=== PATIENT | male | born 1965 | race Hispanic/Latino ===

== ENCOUNTER 2018-01-18 14:10 | Inpatient (IN) | payer OTHER ==
[2018-01-18 14:41] LABS: Absolute Lymphocytes (CBC) 1.2 K/uL (0.7-4.9); Absolute Monocytes 0.5 K/uL (0.1-1.3); Absolute Neutrophil 3.6 K/uL (1.8-8.0); Basophils % 0.4 % (0-1.3); Eosinophils % 0.4 % (0-4.4); Hematocrit 40.2 % (39.6-49.0); Lymphocytes % 22.8 % (15.3-44.8); MCH 34.8 pg (27.0-35.0); MCV 100.4 fL (80-100); MPV 10.4 fL (7.6-11.3); Monocytes % 9.8 % (3.3-12.3)
[2018-01-18] MEDS ORDERED: NA CHLORIDE 0.9% 1,000 ML ONE (14:46)
[2018-01-18] MEDS ORDERED: FENTANYL CITR 100 MCG/2 ML ONE (14:46)
[2018-01-18 15:17] LABS: Albumin 2.5 g/dL (3.4-5.0); Bilirubin Direct 0.5 mg/dL (0-0.2); Bilirubin Total 1.4 mg/dL (0.2-1.0); Potassium 4.1 mmol/L (3.5-5.1); Protein, Total 7.5 g/dL (6.4-8.2)
[2018-01-18 15:36] LABS: Platelet Estimate DECR; Urine White Blood Cell Casts OK
[2018-01-18 15:37] LABS: Blood Morphology Comment NOT SEEN (NOT SEEN)
[2018-01-18] MEDS ORDERED: PROMETHAZINE 25 MG/ML VIAL ONE (15:42)
[2018-01-18] MEDS ORDERED: MORPHINE 4 MG/ML SYR ONE (16:08)
--- NOTE | 2018-01-18 16:20 | ER ---
Nurse's Notes [facility] Name: Osmar Tinoco Jr Age: 52 yrs Sex: Male : 1965 Arrival Date: 01/18/2018 Time: 14:13 Bed 19 Private MD: Diagnosis: Umbilical hernia with obstruction, without gangrene Presentation: 01/18 14:15 Presenting complaint: Patient states: hx of umbilical hernia, today was having sever iw pain to hernia, doctor could not reduce the hernia in clinic. Pt in sever pain 9/10, pale, diaphoretic. Transition of care: patient was not received from another setting of care. Onset of symptoms was January 18, 2018. Risk Assessment: Do you want to hurt yourself or someone else? Patient reports no desire to harm self or others. Initial Sepsis Screen: Does the patient meet any 2 criteria? No. Patient's initial sepsis screen is negative. Does the patient have a suspected source of infection? No. Patient's initial sepsis screen is negative. Care prior to arrival: None. 14:15 Method Of Arrival: Law Enforcement: [place] [employer] iw 14:15 Acuity: HALEY 2 iw Historical: - Allergies: 14:23 PENICILLINS; iw - PMHx: 14:23 Hepatitis; Hypertension; iw - PSHx: 14:23 None; iw - Immunization history:: Adult Immunizations. - Ebola Screening: : Patient negative for fever greater than or equal to 101.5 degrees Fahrenheit, and additional compatible Ebola Virus Disease symptoms Patient denies exposure to infectious person Patient denies travel to an Ebola-affected area in the 21 days before illness onset No symptoms or risks identified at this time. - Social history:: Smoking status: unknown. Screenin:50 Abuse screen: Denies threats or abuse. Denies injuries from another. Nutritional iw screening: No deficits noted. Tuberculosis screening: No symptoms or risk factors identified. Fall Risk IV access (20 points). Assessment: 14:49 General: Appears uncomfortable, ill, Behavior is calm, cooperative. Pain: Complains of iw pain in umbilical area Pain currently is 9 out of 10 on a pain scale. Neuro: Level of Consciousness is awake, alert, obeys commands, Oriented to person, place, time, situation, Moves all extremities. Full function. Cardiovascular: Patient's skin is warm and dry. Respiratory: Respiratory effort is even, unlabored, Respiratory pattern is regular, symmetrical. GI: Abdomen is round obese, Bowel sounds present in right upper quadrant, left upper quadrant, right lower quadrant and left lower quadrant Abd is soft X 4 quads Reports upper abdominal pain, nausea. Derm: Skin is pink, warm \T\ dry. Musculoskeletal: Range of motion: intact in all extremities. 15:46 Reassessment: Patient appears in no apparent distress at this time. Patient and/or em family updated on plan of care and expected duration. Pain level reassessed. c/o of nausea and pain, rates 8/10, Shaunna GENERAL INTERNIST notified, new medication order received. 16:17 Reassessment: Patient appears in no apparent distress at this time. Patient and/or em family updated on plan of care and expected duration. Pain level reassessed. Patient is alert, oriented x 3, equal unlabored respirations, skin warm/dry/pink. Dr. Alonso at bedside, attempted to manually reduce hernia, unsuccessful attempt, pt consented for surgery. 17:00 Reassessment: Patient appears in no apparent distress at this time. Patient and/or em family updated on plan of care and expected duration. Pain level reassessed. Patient is alert, oriented x 3, equal unlabored respirations, skin warm/dry/pink. reports pain 5/10 Patient states feeling better. Vital Signs: 14:17 BP 109 / 45; Pulse 61; Resp 20; Pulse Ox 96% on R/A; Weight 99.79 kg; Height 5 ft. 9 iw in. (175.26 cm); Pain 9/10; 14:48 BP 103 / 56; Pulse 60; Resp 16; Pulse Ox 100% on R/A; iw 15:30 BP 141 / 70; Pulse 74; Resp 18; Temp 98.0(O); Pulse Ox 98% on R/A; em 16:30 BP 114 / 53; Pulse 68; Resp 16; Pulse Ox 99% on R/A; Pain 7/10; em 14:17 Body Mass Index 32.49 (99.79 kg, 175.26 cm) iw ED Course: 14:13 Patient arrived in ED. em 14:17 Triage completed. iw 14:18 Shaunna Viveros FNP-C [facility]. snw 14:18 Levy Jung MD is Attending Physician. snw 14:23 Arm band placed on. iw 14:24 Nguyễn Zaragoza LVN is Primary Nurse. em 14:25 Initial lab(s) drawn, by me, sent to lab. Inserted saline lock: 20 gauge in left Blood iw collected. 14:51 Patient has correct armband on for positive identification. Bed in low position. Pulse iw ox on. NIBP on. 15:27 CT completed. Patient tolerated procedure well. Patient moved back from CT. bq 15:29 CT Abd/Pelvis - W/Contrast In Process Unspecified. EDMS 16:19 Chance Alonso MD is Hospitalizing Provider. snw 17:23 No provider procedures requiring assistance completed. Patient admitted, IV remains in em place. Administered Medications: 14:48 Drug: NS 0.9% 1000 ml Route: IV; Rate: 1000 ml; Site: left antecubital; iw 17:21 Follow up: IV Status: Completed infusion; IV Intake: 1000ml em 14:48 Drug: fentaNYL (PF) 25 mcg Route: IVP; Site: left antecubital; iw 15:48 Follow up: Response: No adverse reaction; Pain is unchanged, physician notified em 15:48 Drug: fentaNYL (PF) 25 mcg Route: IVP; Site: left antecubital; em 17:21 Follow up: Response: No adverse reaction em 15:50 Drug: Phenergan 6.25 mg Route: IVP; Site: left antecubital; iw 17:21 Follow up: Response: No adverse reaction; Nausea is decreased em 16:10 Drug: morphine 2 mg Route: IVP; Site: left antecubital; hb 17:22 Follow up: Response: No adverse reaction; Pain is decreased em 17:00 Drug: vancoMYCIN 1 grams Route: IVPB; Infused Over: 2 hrs; Site: left antecubital; em 17:22 Follow up: Response: No adverse reaction; IV Status: Infusion continued upon admission em Intake: 17:21 IV: 1000ml; Total: 1000ml. em Outcome: 16:19 Decision to Hospitalize by Provider. snw 17:25 Admitted to OR accompanied by nurse, via stretcher, with chart. em 17:25 Condition: good 17:25 Instructed on the need for admit, Demonstrated understanding of instructions. 17:27 Patient left the ED. em Signatures: Dispatcher [employer] EDMS Shaunna Viveros FNP-C EXTERN-Csnw Roseline Washington Edgar, LAPEL STITCHER LAPEL STITCHER em Jordyn Contreras, RN RN iw Disha Tolentino RN RN hb Corrections: (The following items were deleted from the chart) 17:27 15:30 BP 141 / 70; Pulse 74bpm; Resp 18bpm; Pulse Ox 98% RA; em em
--- NOTE | 2018-01-18 16:21 | EDPHYS ---
Physician Documentation [facility] Name: Osmar Tinoco Jr Age: 52 yrs Sex: Male : 1965 Arrival Date: 01/18/2018 Time: 14:13 Bed 19 Private MD: ED Physician Levy Jung HPI: 01/18 14:27 This 52 yrs old Male presents to ER via Law Enforcement with complaints of Abdominal snw Pain, Umbilical Hernia. 14:27 The patient presents with abdominal pain in the periumbilical area. Onset: The snw symptoms/episode began/occurred suddenly, last night. The symptoms do not radiate. Associated signs and symptoms: none. The symptoms are described as constant. Modifying factors: The symptoms are alleviated by nothing, the symptoms are aggravated by pressure. Severity of pain: At its worst the pain was moderate. It is unknown whether or not the patient has had similar symptoms in the past. [facility] clinic. + hx of hepatitis, htn. Historical: - Allergies: 14:23 PENICILLINS; iw - PMHx: 14:23 Hepatitis; Hypertension; iw - PSHx: 14:23 None; iw - Immunization history:: Adult Immunizations. - Ebola Screening: : Patient negative for fever greater than or equal to 101.5 degrees Fahrenheit, and additional compatible Ebola Virus Disease symptoms Patient denies exposure to infectious person Patient denies travel to an Ebola-affected area in the 21 days before illness onset No symptoms or risks identified at this time. - Social history:: Smoking status: unknown. ROS: 14:26 Constitutional: Negative for fever, chills, and weight loss, Eyes: Negative for injury, snw pain, redness, and discharge, ENT: Negative for injury, pain, and discharge, Neck: Negative for injury, pain, and swelling, Cardiovascular: Negative for chest pain, palpitations, and edema, Respiratory: Negative for shortness of breath, cough, wheezing, and pleuritic chest pain, Abdomen/GI: Negative for nausea, vomiting, diarrhea, and constipation, + abdominal pain Back: Negative for injury and pain, : Negative for injury, bleeding, discharge, and swelling, MS/Extremity: Negative for injury and deformity, Skin: Negative for injury, rash, and discoloration, Neuro: Negative for headache, weakness, numbness, tingling, and seizure. Exam: 14:25 Constitutional: This is a well developed, well nourished patient who is awake, alert, snw and in no acute distress. Head/Face: Normocephalic, atraumatic. Eyes: Pupils equal round and reactive to light, extra-ocular motions intact. Lids and lashes normal. Conjunctiva and sclera are non-icteric and not injected. Cornea within normal limits. Periorbital areas with no swelling, redness, or edema. ENT: Nares patent. No nasal discharge, no septal abnormalities noted. Tympanic membranes are normal and external auditory canals are clear. Oropharynx with no redness, swelling, or masses, exudates, or evidence of obstruction, uvula midline. Mucous membranes moist. Neck: Trachea midline, no thyromegaly or masses palpated, and no cervical lymphadenopathy. Supple, full range of motion without nuchal rigidity, or vertebral point tenderness. No Meningismus. Chest/axilla: Normal chest wall appearance and motion. Nontender with no deformity. No lesions are appreciated. Cardiovascular: Regular rate and rhythm with a normal S1 and S2. No gallops, murmurs, or rubs. Normal PMI, no JVD. No pulse deficits. Respiratory: Lungs have equal breath sounds bilaterally, clear to auscultation and percussion. No rales, rhonchi or wheezes noted. No increased work of breathing, no retractions or nasal flaring. Back: No spinal tenderness. No costovertebral tenderness. Full range of motion. Skin: Warm, dry with normal turgor. Normal color with no rashes, no lesions, and no evidence of cellulitis. MS/ Extremity: Pulses equal, no cyanosis. Neurovascular intact. Full, normal range of motion. Neuro: Awake and alert, GCS 15, oriented to person, place, time, and situation. Cranial nerves II-XII grossly intact. Motor strength 5/5 in all extremities. Sensory grossly intact. Cerebellar exam normal. Normal gait. Psych: Awake, alert, with orientation to person, place and time. Behavior, mood, and affect are within normal limits. 14:25 Abdomen/GI: Inspection: abdomen appears normal, visible umbilical hernia, Bowel sounds: normal, Palpation: area palpated with consistent pressure in umbilical area, partial reduction noted. Pt continues to c/o pain.. Vital Signs: 14:17 BP 109 / 45; Pulse 61; Resp 20; Pulse Ox 96% on R/A; Weight 99.79 kg; Height 5 ft. 9 iw in. (175.26 cm); Pain 9/10; 14:48 BP 103 / 56; Pulse 60; Resp 16; Pulse Ox 100% on R/A; iw 15:30 BP 141 / 70; Pulse 74; Resp 18; Temp 98.0(O); Pulse Ox 98% on R/A; em 16:30 BP 114 / 53; Pulse 68; Resp 16; Pulse Ox 99% on R/A; Pain 7/10; em 14:17 Body Mass Index 32.49 (99.79 kg, 175.26 cm) iw MDM: 14:18 Patient medically screened. ghazal 16:07 Data reviewed: vital signs, nurses notes. Data interpreted: Pulse oximetry: on room air snw is 100 %. Interpretation: normal. Counseling: I had a detailed discussion with the patient and/or guardian regarding: the historical points, exam findings, and any diagnostic results supporting the discharge/admit diagnosis, lab results, radiology results. Physician consultation: Chance Alonso MD was called at 16:08, was contacted at 16:08, regarding consult, in the emergency department to see patient at 16:08. 01/18 14:19 Order name: Amylase, Serum snw 01/18 14:19 Order name: Basic Metabolic Panel snw 01/18 14:19 Order name: CBC with Diff; Complete Time: 15:44 snw 01/18 14:19 Order name: Creatinine for Radiology; Complete Time: 15:12 snw 01/18 14:19 Order name: Hepatic Function; Complete Time: 15:20 snw 01/18 14:19 Order name: Lipase; Complete Time: 15:20 snw 01/18 14:19 Order name: Urine Microscopic Only snw 01/18 14:19 Order name: CT Abd/Pelvis - W/Contrast; Complete Time: 16:44 snw 01/18 14:19 Order name: Amylase Level; Complete Time: 15:20 EDMS 01/18 14:19 Order name: Basic Metabolic Panel; Complete Time: 15:20 EDMS 01/18 14:44 Order name: CBC Smear Scan; Complete Time: 15:44 EDMS 01/18 17:06 Order name: Urine Dipstick--Ancillary (enter results) bd 01/18 17:06 Order name: Urine Dipstick-Ancillary [facility] 01/18 14:19 Order name: IV Saline Lock; Complete Time: 14:48 snw 01/18 14:19 Order name: Labs collected and sent; Complete Time: 14:48 snw 01/18 14:19 Order name: Urine Dipstick-Ancillary (obtain specimen); Complete Time: 17:18 snw Administered Medications: 14:48 Drug: NS 0.9% 1000 ml Route: IV; Rate: 1000 ml; Site: left antecubital; iw 17:21 Follow up: IV Status: Completed infusion; IV Intake: 1000ml em 14:48 Drug: fentaNYL (PF) 25 mcg Route: IVP; Site: left antecubital; iw 15:48 Follow up: Response: No adverse reaction; Pain is unchanged, physician notified em 15:48 Drug: fentaNYL (PF) 25 mcg Route: IVP; Site: left antecubital; em 17:21 Follow up: Response: No adverse reaction em 15:50 Drug: Phenergan 6.25 mg Route: IVP; Site: left antecubital; iw 17:21 Follow up: Response: No adverse reaction; Nausea is decreased em 16:10 Drug: morphine 2 mg Route: IVP; Site: left antecubital; hb 17:22 Follow up: Response: No adverse reaction; Pain is decreased em 17:00 Drug: vancoMYCIN 1 grams Route: IVPB; Infused Over: 2 hrs; Site: left antecubital; em 17:22 Follow up: Response: No adverse reaction; IV Status: Infusion continued upon admission em Disposition: 01/19 15:17 Co-signature as Attending Physician, Levy Jung MD I agree with the assessment and [facility] plan of care. Disposition: 01/18/18 16:19 Hospitalization ordered by Chance Alonso for Inpatient Admission. Preliminary diagnosis is Umbilical hernia with obstruction, without gangrene. - Bed requested for Operating Room. - Status is Inpatient Admission. em - Condition is Stable. - Problem is an acute exacerbation. - Symptoms are unchanged. UTI on Admission? No Signatures: Dispatcher [employer] [facility] Levy Jung MD MD cha Therrien, Shelly, DIRECTOR DATABASE-C DIRECTOR DATABASE-Calosw Nguyễn Zaragoza, ESTATE MANAGER ESTATE MANAGER em Ben, Jordyn, RN Disha Becker RN RN Corrections: (The following items were deleted from the chart) 01/18 17:27 16:19 Hospitalization Ordered by Chance Alonso MD for Inpatient Admission. Preliminary em diagnosis is Umbilical hernia with obstruction, without gangrene. Bed requested for Operating Room. Status is Inpatient Admission. Condition is Stable. Problem is an acute exacerbation. Symptoms are unchanged. UTI on Admission? No. snw
--- NOTE | 2018-01-18 16:42 | RAD REPORT ---
EXAM DESCRIPTION: CT - Abdomen Pelvis W Contrast - 01/18/2018 3:34 pm CLINICAL HISTORY: Severe abdominal pain, history of hepatitis, history of hernia COMPARISON: None. TECHNIQUE: Biphasic, helical CT imaging of the abdomen and pelvis was performed following 100 ml non -ionic IV contrast. No oral contrast was given. All CT scans are performed using dose optimization technique as appropriate and may include automated exposure control or mA/KV adjustment according to patient size. FINDINGS: No suspicious findings in the lung bases. No pericardial thickening or effusion. Liver has an advanced nodular contour indicating advanced cirrhosis or diffuse hepatic parenchymal di sease. No focal liver lesion to indicate hepatocellular carcinoma. Spleen is prominent. No focal sple leda abnormality. No acute pancreatic process. Incidental small gallstone. Acute gallbladder disease i s doubtful. No biliary tree dilatation. Renal function is symmetric slightly heterogeneous. Pyelonephritis is unlikely. No obstruction or rema picious mass. No urinary bladder abnormality. No gastric dilatation or gastric wall thickening. Patient has a 5 centimeter diameter midline periumb ilical hernia. Neck is 18 mm in diameter. The hernia defect contains fluid and a loop of small bowel. Small bowel proximal to the herniation is prominent but not dilated. Small bowel distal to the herni a is decompressed. Vargas of the right side colon are prominent with some mild congestion or edema in the adjacent fat. This could be a concurrent right-sided colitis or typhlitis. Bowel wall edema from abnormal liver function would be possible as well. No free air or pneumatosis. There is a small amount of ascites adjacent to the lateral margin of the liver capsule as well as within the hernia. No bulky lymphadenopathy or omental thickening. Fat ext ends into the origin of the left inguinal canal. No adrenal abnormality. No suspicious bony findings. IMPRESSION: A 5 centimeter periumbilical hernia has an 18 millimeter neck. The hernia contains a loo p of small bowel and there is ascites within the hernia. Findings are suspicious for an incarcerated but non strangulated hernia. Advanced cirrhosis or diffuse hepatic parenchymal disease of the liver. No focal liver lesions seen. Wall thickening of the cecum and ascending colon. This could be a right-sided colitis, typhlitis or p ossibly edema related to abnormal liver function.
[2018-01-18] MEDS ORDERED: VANCOMYCIN 1 GM/250 ML BAG ONE (16:55)
[2018-01-18] MEDS ORDERED: Ringers Lactate 1,000 ML IV ONE ×2 (17:27→19:20)
[2018-01-18 17:28] LABS: Urine Blood NEGATIVE (NEG); Urine Glucose NEGATIVE (NEG); Urine Protein NEGATIVE (NEG); Urine Specific Gravity 1.015 (1.005-1.030); Urine pH 8.5 (5.0-7.0)
[2018-01-18] MEDS ORDERED: BUPIVACA 0.25%/EPI 0.0005%/PF 30 ML VIAL ONE (17:29)
[2018-01-18] MEDS ORDERED: SUCCINYLCHOLINE 20 MG/ML (10 ML) IV ONE (17:31)
[2018-01-18] MEDS ORDERED: MIDAZOLAM HCL 2 MG/2 ML INJ ONE (17:33)
[2018-01-18] MEDS ORDERED: PROPOFOL 200 MG/20 ML VIAL IV ONE (17:33)
[2018-01-18] MEDS ORDERED: FENTANYL CITR 250 MCG/5 ML ONE (17:34)
[2018-01-18] MEDS ORDERED: ROCURONIUM 50 MG/5 ML VIAL IV ONE ×2 (17:34→18:14)
[2018-01-18] MEDS ORDERED: NEOSTIGMINE 1 MG/ML -5 ML SYRINGE ONE (19:14)
[2018-01-18] MEDS ORDERED: GLYCOPYRROLATE 0.2 MG/ML SYR ONE (19:15)
--- NOTE | 2018-01-18 19:23 | P.OP ---
Supplier Diversity Director: Ramon Delgado Preoperative diagnosis: Incarcerated Umbilical Hernia Postoperative diagnosis: Stranuglated Umbilical Hernia Primary procedure: Small Bowel Resection Secondary procedure: Primary Repair of Umbilical Hernia Anesthesia: GETA + Local Estimated blood loss: <50cc Specimen: Small bowel, hernia sac Findings: Strangulated ischemic small bowel Complications: None Transferred to: Recovery Room Condition: Good
[2018-01-18] MEDS ORDERED: MEPERIDINE HCL 25 MG/0.5 ML ONE (19:39)
--- NOTE | 2018-01-18 19:39 | HP ---
Date of Admission: 01/18/2018 Brief History Of Present Illness: The patient is a 52-year-old male, incarcerated at the [facility] unit, who comes in with a 6-month history of umbilical hernia. He states that over the pa st 24 hours, however, it is significantly more tender, painful. He has had some nausea, no vomiting. The pain has become excruciating and the hernia is unable to be pushed back in, which he has previo usly been able to perform. Past Medical History: Significant for hepatitis C, hypertension. Past Surgical History: Denies Allergies: NO KNOWN DRUG ALLERGIES. Medications: None. Social History: He denies smoking, alcohol, or recreational drug use. He is currently incarcerated as described above. Review of Systems: A 10-point review of systems other than HPI denies. Physical Examination: General: At the time of my examination, he is awake, alert, oriented. Psychiatric: He is appropriate and conversive. HEENT: Normocephalic. Sclerae anicteric. Mucosa is moist. Oropharynx clear. Neck: Supple. No JVD. Chest: Normal expansion and excursion. Cardiovascular: Regular rate and rhythm. Pulmonary: Clear to auscultation bilaterally. Abdomen: Soft. Positive umbilical hernia. Entrapped, incarcerated umbilical hernia, which I believ e contains intestines. It is tender to palpation. I am unable to reduce using TAXIS and Trendelenbu rg and relaxation and medication. Extremities: No clubbing, cyanosis, or edema. Skin: the patient is globally tattooed from his neck, covering his entire abdomen and extremities. Otherwise, skin is unremarkable. Laboratory Data: Reveals a white blood count 5.5, hemoglobin 14.2 over hematocrit of 40.2, and plate let count of 67. Sodium 140, potassium 4.1, chloride 105, carbon dioxide 25, BUN 8, creatinine 0.9, glucose is 147, ALT 96, ALT 75, alkaline phosphatase is 97. His amylase 61, lipase 181. He had a CT scan for the abdomen and pelvis. The official dictation is currently pending. I have personally re viewed this and find that the patient likely has intestines entrapped in an umbilical hernia, but the official dictation is currently pending. Assessment And Plan: This is a 52-year-old male, who presents with signs and symptoms of incarcerate d umbilical hernia. 1.IV fluid hydration. 2.Antibiotic coverage. 3.I have explained the risks, benefits, and alternatives to the patient as well as the officers acco mpanying him that he will likely need an emergent open umbilical hernia repair possibly with mesh. R isks include, but not limited to bleeding, infection, damage to surrounding tissue, need for further operations and procedures. The patient and staff agreed to proceed. TOSHIA/JAKE Voice ID: [id number]
[2018-01-18] MEDS ORDERED: SODIUM CHLORIDE 0.9% 10ML INJ IV PRN (19:49)
[2018-01-18] MEDS ORDERED: ONDANSETRON 4 MG/2 ML VIAL IV PRN (19:49)
[2018-01-18] MEDS: D5.45NS W/KCL 20MEQ 1,000 ML IV SCH (20:41)
[2018-01-18] MEDS: Levofloxacin500mg IV 500 MG/100 ML BAG IV SCH (22:39)
[2018-01-18] MEDS: HYDROMORPHONE HCL 1 MG/ML INJ IV PRN (22:48)
[2018-01-18] MEDS: METRONIDAZOLE 500mg IVPB 500 MG/100 ML BAG IV SCH (23:43)
--- NOTE | 2018-01-19 05:23 | OP ---
Date of Procedure: 01/18/2018 Surgeon: Chance Alonso MD, Senior Patient Account Representative: Elena Dukes. Preoperative Diagnosis: Incarcerated umbilical hernia. Postoperative Diagnosis: Strangulated umbilical hernia. Procedure Performed: 1.Small bowel resection. 2.Primary repair of umbilical hernia. Anesthesia: General endotracheal plus local. Estimated Blood Loss: Less than 50 cc. Specimens: 1.Small bowel. 2.Hernia sac. Findings: Strangulated ischemic bowel. Complications: None. Disposition: Transferred to recovery room in good condition. Additional Findings: The patient had significant amount of ascites in the abdomen. Procedure In Detail: After informed consent obtained by himself as well as the officers with him, th e patient is a prisoner in one of the local facilities, the patient was brought to the operating room , prepped and draped in usual sterile fashion. After adequate anesthesia was achieved, an infraumbil ical area was anesthetized in an infraumbilical curvilinear fashion. A 15 blade was used to cut thro ugh the skin and dissect down through the subcutaneous fat. Dissection continued down using electroc autery to encounter the hernia sac rather quickly as this was an approximately 4 cm hernia with a andres y narrow neck. After opening the hernia sac, ascitic fluid was appreciated with some hemorrhagic com ponent. The sac was opened in its entirety down to the fascial plane. Bowel was immediately encount ered. This was very dark and ischemic in appearance, consistent with a strangulated small bowel segm ent. The hernia was quite tight at this time using electrocautery and then followed by sharp dissect ion ensuring to protect the bowel. I opened up the fascia inferiorly in a linear fashion, continuing down to allow for additional evisceration of the intestine. After this fascial plane was opened for approximately 4.5 cm, I eviscerated more of the small bowel and gave the ischemic segment some time to see if it would clear itself as ischemic or if it would recover. After approximately 4 to 5 minut es soaked in wet gauze, I inspected the intestine and noted that it had multiple rings of ischemic ch anges to this concerning for possible early necrosis. Therefore, I decided to do a small bowel resec tion at this time. As the bowel was already reduced in a good anatomic position, I found a good segm ent of bowel on the proximal distal end of the ischemic segment. I aligned these 2 using a 2-0 silk suture in both the proximal distal aspect. I then created a mesenteric window on the proximal distal aspects of the ischemic small bowel. After creating a mesenteric window, I passed a JANEEN 55 with a b lue load and fired across both the proximal distal small bowel, therefore, ligating this segment of s mall bowel. I then used the LigaSure Jackson device to ligate the mesentery from this segment of ische mani bowel. The specimen was then passed off for pathologic examination. Good hemostasis was achieve d this time. Additional ascitic fluid was encountered throughout the procedure coming from the patie nt's abdomen consistent with his preoperative diagnosis of cirrhosis with ascites. I then aligned th e small bowel in a [id number] fashion and placing sterile towels in the area for an additional ster ile field. To protect the enteric contents from entering the abdomen, I made a small enterotomy in t he proximal distal aspect. I then used a JANEEN 55 blue load to create a common channel between the pro ximal distal small bowel in a [id number]-ci-[id number] fashion with a good common channel. Minimal bleeding was appreciated at this time. I then closed the common channel with a 3-0 PDS in a canal running fashion and placed a second layer of Lembert sutures over the top of this. The area was palpated and had a good common channel with an open patent anastomosis. I then closed the mesenteric defect with an int errupted 3-0 Vicryl suture with good approximation. I then inspected the bowel, irrigated it, cleans ed it quite well and placed the PEG back in the patient's abdomen at this time. I then removed the h ernia sac circumferentially around to the level of the fascia and inspected the area for good hemosta sis which was achieved with minimal electrocautery in the area. The bowel was safe and reduced to th e abdomen out of the way at this time. A complete running of the bowel was not performed as this is a small incision and it was felt to be unnecessary as the obvious pathology was discovered as above. No additional hemorrhagic fluid was appreciated, only some mild ascitic fluid was encountered emanat ing from the patient's abdomen throughout the procedure. I then decided to close the patient's abdom en primarily as good fascial edges were appreciated on the side there and as the patient had a small bowel resection, I decided against using mesh at this time due to possible contamination even taking precautions and therefore, I was concerned about the possibility for infection, and therefore, I deci ded to do a primary closure at this time. I then used a #1 looped PDS to run the fascia and closed t he patient's abdomen in its entirety with good approximation of the tissue. At this point, I then ir rigated the skin and subcutaneous areas quite liberally and reapproximated the deep layers with a 3-0 Vicryl in an interrupted fashion. I then used skin rosalva to reapproximate the skin over the top a nd a sterile dressing was placed over top. The patient tolerated the procedure well without evidence of complication and was transferred to the ICU in good condition. All counts were correct at the en d of the case. TOSHIA/JAKE Voice ID: [id number] Report ID: [id number]
[2018-01-19 05:28] LABS: Absolute Lymphocytes (CBC) 1.3 K/uL (0.7-4.9); Absolute Monocytes 0.9 K/uL (0.1-1.3); Absolute Neutrophil 8.4 K/uL (1.8-8.0); Basophils % 0.2 % (0-1.3); Eosinophils % 0.2 % (0-4.4); Hematocrit 37.7 % (39.6-49.0); Lymphocytes % 12.2 % (15.3-44.8); MCH 35.1 pg (27.0-35.0); MCV 100.6 fL (80-100); MPV 10.9 fL (7.6-11.3); Monocytes % 8.6 % (3.3-12.3); RBC Red Blood Cell Count 3.75 M/uL (4.33-5.43)
[2018-01-19 05:38] LABS: BUN Blood Urea Nitrogen 7 mg/dL (7-18); Bicarbonate 26 mmol/L (21-32); Glucose Level 118 mg/dL (74-106); Magnesium 1.9 mg/dL (1.8-2.4); Phosphorus 3.2 mg/dL (2.5-4.9); Potassium 4.3 mmol/L (3.5-5.1); Sodium Level 138 mmol/L (136-145)
[2018-01-19] MEDS: D5.45NS W/KCL 20MEQ 1,000 ML IV SCH ×3 (05:52→21:57)
[2018-01-19] MEDS: METRONIDAZOLE 500mg IVPB 500 MG/100 ML BAG IV SCH ×2 (05:53→12:20)
[2018-01-19] MEDS: HYDROMORPHONE HCL 1 MG/ML INJ IV PRN ×4 (06:43→22:04)
[2018-01-19] MEDS: PANTOPRAZOLE 40 MG INJ IVP SCH (09:05)
--- NOTE | 2018-01-19 10:25 | P.PN ---
Subjective Date of Service: 01/19/18 Subjective: Improving (Pain much improved, ng tube in place.) Physical Examination - Vital Signs Temperature: 98.6 F Blood Pressure: 149/72 Pulse: 85 Respirations: 18 Pulse Ox (%): 95 - Physical Exam General: Alert, In no apparent distress, Cooperative Respiratory: Clear to auscultation bilaterally, Normal air movement Cardiovascular: Regular rate/rhythm Gastrointestinal: Other (soft, appropriate TTP, ND, dressing clean and dry) - Studies Laboratory Data (last 24 hrs) 01/18/18 14:30: Creatinine 0.90 01/18/18 14:30: WBC 5.5, Hgb 14.0, Hct 40.2, Plt Count 67 L 01/18/18 14:30: Sodium 140, Potassium 4.1, BUN 8, Creatinine 0.90, Glucose 147 H , Total Bilirubin 1.4 H, AST 96 H, ALT 75, Alkaline Phosphatase 97, Amylase 61, Lipase 181 Assessment And Plan - Current Problems (Diagnosis) (1) Strangulated umbilical hernia Onset Date: 01/19/18 Current Visit: Yes Status: Acute Plan: s/p Small bowel resection - ambulate - clamp trial for 2 hours, DC NG tube if tolerated - serial exams
[2018-01-19] MEDS: Levofloxacin500mg IV 500 MG/100 ML BAG IV SCH (22:09)
[2018-01-20] MEDS: HYDROMORPHONE HCL 1 MG/ML INJ IV PRN ×6 (00:26→21:18)
[2018-01-20] MEDS: D5.45NS W/KCL 20MEQ 1,000 ML IV SCH ×3 (04:31→21:07)
[2018-01-20 05:14] LABS: Absolute Lymphocytes (CBC) 1.9 K/uL (0.7-4.9); Absolute Monocytes 1.3 K/uL (0.1-1.3); Absolute Neutrophil 6.4 K/uL (1.8-8.0); Basophils % 0.8 % (0-1.3); Eosinophils % 1.1 % (0-4.4); Hematocrit 33.6 % (39.6-49.0); Lymphocytes % 19.7 % (15.3-44.8); MCH 35.7 pg (27.0-35.0); MCV 100.2 fL (80-100); MPV 10.5 fL (7.6-11.3); Monocytes % 13.4 % (3.3-12.3); RBC Red Blood Cell Count 3.36 M/uL (4.33-5.43)
[2018-01-20 05:39] LABS: BUN Blood Urea Nitrogen 9 mg/dL (7-18); Bicarbonate 25 mmol/L (21-32); Glucose Level 98 mg/dL (74-106); Magnesium 1.9 mg/dL (1.8-2.4); Phosphorus 1.3 mg/dL (2.5-4.9); Potassium 4.2 mmol/L (3.5-5.1); Sodium Level 138 mmol/L (136-145)
--- NOTE | 2018-01-20 08:17 | P.PN ---
Subjective Date of Service: 01/20/18 Subjective: Improving (passing gas, pain well controlled, no acute issues) Physical Examination - Vital Signs Temperature: 99.2 F Blood Pressure: 127/61 Pulse: 81 Respirations: 20 Pulse Ox (%): 95 - Physical Exam General: Alert, In no apparent distress, Cooperative HEENT: Mucous membr. moist/pink Gastrointestinal: Other (soft, mild appropriate TTP, ND, incision has minimal sersanguanous dc, rosalva in place) Assessment And Plan - Current Problems (Diagnosis) (1) Strangulated umbilical hernia Onset Date: 01/19/18 Current Visit: Yes Status: Acute Plan: s/p Small bowel resection - ambulate - full liquid diet today - serial exams - possible DC in AM - rosalva to be removed in 14 days from day of surgery
[2018-01-20] MEDS: PANTOPRAZOLE 40 MG INJ IVP SCH (09:23)
[2018-01-20] MEDS: Levofloxacin500mg IV 500 MG/100 ML BAG IV SCH (21:06)
[2018-01-21 05:13] LABS: Absolute Lymphocytes (CBC) 1.6 K/uL (0.7-4.9); Absolute Monocytes 1.3 K/uL (0.1-1.3); Absolute Neutrophil 7.4 K/uL (1.8-8.0); Basophils % 0.6 % (0-1.3); Eosinophils % 1.4 % (0-4.4); Hematocrit 30.2 % (39.6-49.0); Lymphocytes % 15.4 % (15.3-44.8); MCV 98.7 fL (80-100); MPV 11.2 fL (7.6-11.3); Monocytes % 12.2 % (3.3-12.3); RBC Red Blood Cell Count 3.06 M/uL (4.33-5.43)
[2018-01-21 05:29] LABS: BUN Blood Urea Nitrogen 10 mg/dL (7-18); Bicarbonate 27 mmol/L (21-32); Glucose Level 126 mg/dL (74-106); Phosphorus 1.6 mg/dL (2.5-4.9); Potassium 4.7 mmol/L (3.5-5.1); Sodium Level 135 mmol/L (136-145)
[2018-01-21] MEDS: D5.45NS W/KCL 20MEQ 1,000 ML IV SCH (08:00)
[2018-01-21] MEDS: PANTOPRAZOLE 40 MG INJ IVP SCH (08:22)
[2018-01-21] MEDS: HYDROMORPHONE HCL 1 MG/ML INJ IV PRN (11:34)
--- NOTE | 2018-03-17 18:55 | P.DS ---
Admission Date: 01/18/18 Discharge Date: 03/17/18 Disposition: DISCHARGE TO LONGTERM/CARE HOME Discharge Condition: GOOD - Problems (1) Strangulated umbilical hernia Onset Date: 01/19/18 Status: Acute Brief History of Present Illness: Patient is a 52 year old man brought from local retirement with an incarcerated umbilical hernia. Hospital Course: Patient admitted to hospital with abdominal pain, incarcerated umbilical hernia , he was taken to OR for an open umbilical hernia repair, and he was noted to have strangulated small bowel, as such a small bowel resection was performed and primary anastamosis. He did well post op, was started on liquids and eventually advanced to soft diet, tolerated well, having normal bowel function, pain well controlled. Rosalav left in place. Vital Signs/Physical Exam: Temp Pulse Resp BP Pulse Ox 97.9 F 79 18 135/58 L 97 01/21/18 12:00 01/21/18 12:00 01/21/18 12:00 01/21/18 12:00 01/21/18 12:00 General: Alert, In no apparent distress, Cooperative HEENT: Mucous membr. moist/pink Neck: Supple Respiratory: Clear to auscultation bilaterally, Normal air movement Cardiovascular: No edema, Regular rate/rhythm Gastrointestinal: Other (soft, mild appropriate TTP, ND, incision clean, rosalva in place) Musculoskeletal: No clubbing, No swelling, No contractures, No tenderness, No warmth Integumentary: No rashes, No breakdown, No tenderness/swelling Neurological: Normal gait, Normal speech Laboratory Data at Discharge: WBC 10.5 K/uL (4.3-10.9) 01/21/18 04:34 Hgb 11.0 g/dL (13.6-17.9) L 01/21/18 04:34 Hct 30.2 % (39.6-49.0) L 01/21/18 04:34 Plt Count 57 K/uL (152-406) L 01/21/18 04:34 Sodium 135 mmol/L (136-145) L 01/21/18 04:34 Potassium 4.7 mmol/L (3.5-5.1) 01/21/18 04:34 BUN 10 mg/dL (7-18) 01/21/18 04:34 Creatinine 0.60 mg/dL (0.55-1.3) 01/21/18 04:34 Glucose 126 mg/dL (74-106) H 01/21/18 04:34 Phosphorus 1.6 mg/dL (2.5-4.9) L 01/21/18 04:34 Magnesium 2.0 mg/dL (1.8-2.4) 01/21/18 04:34 Total Bilirubin 1.4 mg/dL (0.2-1.0) H 01/18/18 14:30 AST 96 U/L (15-37) H 01/18/18 14:30 ALT 75 U/L (12-78) 01/18/18 14:30 Alkaline Phosphatase 97 U/L (45-117) 01/18/18 14:30 Amylase 61 U/L (25-115) 01/18/18 14:30 Lipase 181 U/L (73-393) 01/18/18 14:30 Home Medications: NK [No Home Meds] 01/18/18 Patient Discharge Instructions: - remove rosalva in 14 days from day of surgery Diet: Regular Activity: No lifting more than 10 lbs Followup: Chance Alonso MD [ACTIVE - CAN ADMIT] -
== END 2018-01-21 13:05 | DRG 330 ==
LOC: ER 14:10 → OR 17:17 → 2ND 19:53
PROVIDERS: ADMIT Surgery; ATTEND Surgery
PROC: 0WQF0ZZ Repair Abdominal Wall, Open Approach (ICD-10-PCS; principal; 2018-01-19)
PROC: 0DB80ZZ Excision of Small Intestine, Open Approach (ICD-10-PCS; 2018-01-19)
DX: K42.0 Umbilical hernia with obstruction, without gangrene (principal); R18.8 Other ascites; B18.2 Chronic viral hepatitis C; K74.60 Unspecified cirrhosis of liver; Z88.0 Allergy status to penicillin; I10 Essential (primary) hypertension
CPT/HCPCS: 36415; 74177; 80048; 80076; 81003; 82150; 83690; 83735; 84100; 85025; 88302; 88305; 88307; 96361; 96365; 96375; 99285; C9113; J0330; J1170; J2175; J2250; J2550; J2710; J3010; J3370; J7030; Q9967